=== PATIENT | male | born 1985 | race Caucasian/White ===

== ENCOUNTER 2018-11-22 10:17 | Inpatient (IN) | payer BC ==
[2018-11-22] VITALS (23 sets, daily range): BP systolic 102–145; BP diastolic 49–73; PULSE 79–104; RESP 14–20; Ht 177.8 cm; Wt 103.6 kg
[~2018-11-22] VITALS: Ht 177.8 cm; Wt 103.6 kg
[2018-11-22] MEDS ORDERED: SOD CHLORIDE 0.9% 1,000 ML IV STA (12:07)
[2018-11-22] MEDS ORDERED: ONDANSETRON 4 MG INJ IV STA (12:07)
[2018-11-22] MEDS ORDERED: KETOROLAC 30 MG INJ IV STA (12:07)
[2018-11-22] MEDS ORDERED: SOD CHLORIDE 0.9% 100 ML ONE (13:15)
[2018-11-22] MEDS ORDERED: IOHEXOL 300MG/ML 150 ML BTL ONE (13:15)
--- NOTE | 2018-11-22 13:53 | ERD ---
ER Documentation Chief Complaint Chief Complaint righrt lower quadrant pain, denies n/v/d, clinic couldn"t scan pt. HPI 33-year-old male presenting with right lower quadrant pain x48 hours. No vomiting. Pain is constant. Denies any changes in urination or bowel movement. No fevers. Denies medical problems. NKDA. Surgical history denies. Drug use is marijuana occasionally. ROS All systems reviewed and are negative except as per history of present illness. Allergies Allergies: Coded Allergies: No Known Allergy (Unverified , 11/22/18) PMhx/Soc Medical and Surgical Hx: pt denies Medical Hx, pt denies Surgical Hx Hx Alcohol Use: No Hx Substance Use: Yes (marijuana used a month ago) Hx Tobacco Use: No FmHx Family History: No diabetes, No coronary disease, No other Physical Exam Vitals Vital Signs Date Temp Pulse Resp B/P (MAP) Pulse Ox O2 O2 Flow FiO2 Time Delivery Rate 11/22/18 97.6 90 18 160/88 98 10:28 (112) Physical Exam GENERAL: The patient is well-appearing, well-nourished, in no acute distress HEENT: Atraumatic. Conjunctivae are pink. Pupils equal, round, and reactive to light. There is no scleral icterus. Tympanic membranes clear bilaterally. Oropharynx clear. NECK: C-spine is soft and supple. There is no meningismus. There is no c ervical lymphadenopathy. CHEST: Clear to auscultation bilaterally. There are no rales, wheezes or rhonchi. HEART: Regular rate and rhythm. No murmurs, clicks, rubs or gallops. ABDOMEN: Normal active bowel sounds. No distention. Tender to palpation in the right lower quadrant pain with jumping. BACK: No midline or flank tenderness. Result Diagram: 11/22/18 1220 11/22/18 1220 Results 24 hrs Laboratory Tests Test 11/22/18 12:20 White Blood Count 11.3 10^3/ul Red Blood Count 5.28 10^6/ul Hemoglobin 14.2 g/dl Hematocrit 43.9 % Mean Corpuscular Volume 83.1 fl Mean Corpuscular Hemoglobin 26.9 pg Mean Corpuscular Hemoglobin Concent 32.3 g/dl Red Cell Distribution Width 13.1 % Platelet Count 229 10^3/UL Mean Platelet Volume 10.3 fl Immature Granulocytes % 0.300 % Neutrophils % 75.8 % Lymphocytes % 14.3 % Monocytes % 8.1 % Eosinophils % 1.2 % Basophils % 0.3 % Nucleated Red Blood Cells % 0.0 /100WBC Immature Granulocytes # 0.030 10^3/ul Neutrophils # 8.6 10^3/ul Lymphocytes # 1.6 10^3/ul Monocytes # 0.9 10^3/ul Eosinophils # 0.1 10^3/ul Basophils # 0.0 10^3/ul Nucleated Red Blood Cells # 0.0 10^3/ul Urine Color YELLOW Urine Clarity CLOUDY Urine pH 5.0 Urine Specific [place] 1.023 Urine Ketones 1+ mg/dL Urine Nitrite NEGATIVE mg/dL Urine Bilirubin NEGATIVE mg/dL Urine Urobilinogen NEGATIVE mg/dL Urine Leukocyte Esterase NEGATIVE Kavon/ul Urine Microscopic RBC 2 /HPF Urine Microscopic WBC 4 /HPF Urine Mucus MANY /HPF Urine Hemoglobin 1+ mg/dL Urine Glucose NEGATIVE mg/dL Urine Total Protein 1+ mg/dl Sodium Level 145 mmol/L Potassium Level 4.2 mmol/L Chloride Level 105 mmol/L Carbon Dioxide Level 29 mmol/L Anion Gap 11 Blood Urea Nitrogen 7 mg/dl Creatinine 0.92 mg/dl Est Glomerular Filtrat Rate mL/min > 60 mL/min Glucose Level 107 mg/dl Calcium Level 10.1 mg/dl Total Bilirubin 0.9 mg/dl Direct Bilirubin 0.00 mg/dl Indirect Bilirubin 0.9 mg/dl Aspartate Amino Transf (AST/SGOT) 21 IU/L Alanine Aminotransferase (ALT/SGPT) 22 IU/L Alkaline Phosphatase 43 IU/L Total Protein 8.5 g/dl Albumin 4.8 g/dl Globulin 3.70 g/dl Albumin/Globulin Ratio 1.29 Lipase 91 U/L Current Medications Medications Dose Sig/Zohra Start Time Status Last (Trade) Ordered Route PRN Stop Time Admin Dose Reason Admin Sodium 1,000 ml @ Q1H STAT 11/22/18 DC 11/22/18 Chloride 1,000 mls/hr IV 12:07 12:30 11/22/18 13:06 Ondansetron 4 mg ONCE STAT 11/22/18 DC 11/22/18 HCl (Zofran IV 12:07 12:30 Inj) 11/22/18 12:08 Ketorolac 30 mg ONCE STAT 11/22/18 DC 11/22/18 Tromethamine IV 12:07 12:30 (Toradol) 11/22/18 12:08 IV Flush 10 ml STK-MED 11/22/18 DC 11/22/18 (NS 10 ml) ONCE .ROUTE 13:15 13:22 11/22/18 13:16 Sodium 100 ml @ ud STK-MED 11/22/18 DC 11/22/18 Chloride ONCE .ROUTE 13:15 13:22 11/22/18 13:16 Iohexol 150 ml STK-MED 11/22/18 DC 11/22/18 (Omnipaque ONCE .ROUTE 13:15 13:22 300mg/ ml) 11/22/18 13:16 Piperacillin 100 ml @ ONCE ONCE 11/22/18 11/22/18 Sod/ 200 mls/hr IVPB 14:00 13:46 Tazobactam 11/22/18 14:29 Sod Procedures/MDM DIAGNOSTIC IMAGING REPORT Patient: KENNEY SHELL : 1985 Age: 33 Sex: M MR #: [id number] DOS: 11/22/18 1207 Ordering MD: TERRANCE WAY PA-C Location: [facility] Room/Bed: PROCEDURE: CT ABDOMEN AND PELVIS WITH IV CONTRAST. CLINICAL INDICATION: Right lower quadrant abdominal pain TECHNIQUE: CT scan of the abdomen and pelvis with contrast was performed on a multidetector high-resolution CT scanner following the use of IV contrast. 100 cc Omnipaque-300 was administered. Coronal and sagittal reformatted images were obtained from the axial source images. Images were reviewed on a high-resolution PACS workstation. The total exam CTDI equals 19.4 mGy and the total exam DLP equals 1151 mGy-cm. One or more of the following dose reduction techniques were used: Automated exposure control. Adjustment of the mA and/or kV according to patient size. Use of iterative reconstruction technique. DICOM images are available. COMPARISON: None FINDINGS: CT abdomen: The lung bases are clear. The heart size is within normal limits. There is no significant pericardial effusion. Hepatic morphology is within normal limits. No gross contour deforming masses. The gallbladder is within normal limits. No evidence of intrahepatic or extrahepatic biliary dilatation. The spleen and pancreas are within normal limits. Both adrenal glands are within normal limits. Both kidneys are in normal anatomic position. No evidence of obstruction or hydronephrosis. No gross renal/ureteric calculi. The visualized GI tract demonstrates fluid-filled appendix with moderate amount of adjacent inflammatory changes. There is mild adjacent free fluid and phlegmon. No definitive focal fluid collection noted at this time. Appendicolith is identified, measuring up to 7 millimeters. There is adjacent inflammation of the cecum. The aorta is unremarkable. Several shoddy retroperitoneal lymph nodes are noted. CT pelvis: The bladder is within normal limits. Prostate is normal size. Rectosigmoid colon demonstrates stool. No significant free fluid. No significant pelvic lymphadenopathy. The visualized osseous structures, appears to be within normal limits. IMPRESSION: 1. FINDINGS DESCRIBED ABOVE ARE CONSISTENT WITH ACUTE APPENDICITIS. THERE IS A MODERATE AMOUNT OF ADJACENT INFLAMMATORY CHANGES, FREE FLUID AND PHLEGMON. NO DEFINITIVE FOCAL FLUID COLLECTION OR FREE AIR NOTED AT THIS TIME. ADJACENT IN FLAMMATION OF THE CECUM. 2. No evidence of bowel obstruction. Several fluid filled loops of small bowel suggestive of reactive ileus. ER Course: 1 L normal saline given ED. Morphine given in the ED. Zosyn given ED. Positive findings of appendicitis and Dr. Mae will help facilitate admission. MDM: 33-year-old male presenting with findings consistent with abdominal pain and appendicitis. Patient will be admitted for higher level of care antibiotics intervention. Patient will have surgical consultation. Patient is stable at the time of admission. All questions answered at the time of admission Departure Diagnosis: Primary Impression: Appendicitis Condition: Serious EDDIE WAY PA-C Nov 22, 2018 13:53
[2018-11-22] MEDS ORDERED: PIPER-TAZO 3.375 GM IV (PMX) 100 ML IVPB ONE (14:00)
[2018-11-22] MEDS ORDERED: SOD CHLORIDE 0.9% 1,000 ML IV SCH ×2 (14:14→17:16)
[2018-11-22] MEDS ORDERED: ACETAMINOPHEN 325 MG TAB PO PRN ×3 (14:30→19:00)
[2018-11-22] MEDS ORDERED: ONDANSETRON 4 MG INJ IV PRN ×5 (14:30→19:00)
[2018-11-22] MEDS ORDERED: morphine 2 MG INJ IV PRN ×2 (15:00→19:00)
[2018-11-22] MEDS ORDERED: NACL 0.9% 3 ML SYG IV SCH (15:00)
--- NOTE | 2018-11-22 15:01 | HP ---
Date/Time of Note Date/Time of Note DATE: 11/22/18 TIME: 14:51 Assessment/Plan VTE Prophylaxis Pharmacological prophylaxis: NA/contraindicated Pharm contraindication: low risk/ambulating Lines/Catheters IV Catheter Type (from Nrs): Saline Lock Assessment/Plan Assessment/Plan 33 yo obese man presents with acute appendicitis #Acute appendicitis - As seen on CT. - NPO, IV fluids, IV opioid analgesics - IV zosyn until surgery - Dr. Hurt consulted. - Patient reports ability to exert >4 METS without dyspnea or chest pain. He does not have signs or symptoms of CHF or CAD. He is medically optimized for lap vs open appendectomy. No further cardiac or medical workup needed prior to OR. DVT: SCDs GI: None Result Diagram: 11/22/18 1220 11/22/18 1220 HPI/ROS Admit Date/Time Admit Date/Time 22 November 2018 Hx of Present Illness Mr. Jean is a pleasant 33 yo man who presents with acute onset abdominal pain. 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 He had rapidly progressive right lower quadrant abdominal pain. Cannot qualify nature of pain. Constant over the past two days, worsens with movement, mild improvement with OTC ibuprofen. No nausea, vomiting, diarrhea, constipation, fevers, chills, anorexia, fatigue. He looked up his symptoms online and was concerned about appendicitis so presented to the ED today. In the ED he was afebrile, slightly hypertensive to 160/88 otherwise vitals unremarkable. Mild leukocytosis to 11.[address] labs un[address]. [address] abdomen showed acute appendicitis with 7 mm appendicolith. ROS 12 point review of systems negative except per HPI. PMH/Family/Social Past Medical History Medical History: no pertinent history Medications Current Medications Sodium Chloride 1,000 ml @ 80 mls/hr [id number] IV ; Start 11/22/18 at 14:14; Stop 11/23/18 at 02:43 Ondansetron HCl (Zofran Inj) 4 mg BRIDGE ORDER PRN IV NAUSEA/VOMITING; Start 11/22/18 at 14:30; Stop 11/23/18 at 14:29 Acetaminophen (Tylenol Tab) 650 mg ER BRIDGE PRN PO .MILD PAIN 1-3 OR TEMP; Start 11/22/18 at 14:30; Stop 11/23/18 at 14:29 Coded Allergies: No Known Allergy (Unverified , 11/22/18) Past Surgical History Root canal procedure, wisdom teeth removal. Family History Significant Family History: no pertinent family hx Social History Alcohol Use: rarely (1 drink per week) Smoking Status: Never smoker Drug Use: marijuana (rare) Exam/Review of Systems Vital Signs Vitals Vital Signs Date Temp Pulse Resp B/P (MAP) Pulse Ox O2 O2 Flow FiO2 Time Delivery Rate 11/22/18 97.6 78 18 113/69 99 Room Air 14:12 (84) Exam Exam Gen: Obese man supine in gurney, well appearing. Eyes: PERRL, no icterus HEENT: Moist mucous membranes, clear oropharynx Neck: No lymphadenopathy, supple. Card: Regular rate and rhythm, no murmurs Pulm: Clear to auscultation bilaterally. Abd: Obese, soft. No referred pain from LLQ deep palpation. No rebound tenderness. Moderate RLQ tenderness. Ext: No cyanosis/clubbing/edema Skin: warm, dry, well perfused. ALMA HURLEY MD Nov 22, 2018 15:01
[2018-11-22] MEDS: SOD CHLORIDE 0.45% 1,000 ML IV SCH (15:49)
--- NOTE | 2018-11-22 17:17 | OPR ---
Date/Time of Note Date/Time of Note DATE: 11/22/18 TIME: 17:15 Operative Report Preoperative Diagnosis Acute appendicitis Postoperative Diagnosis Same Operation/Procedure Performed Laparoscopic appendectomy Surgeon see signature line Chief Design Engineer none Anesthesia Type: general Anesthesiologist: ESTEPHANIA VELASCO MD Estimated Blood Loss: minimal Transfusion none Specimen Gangrenous appendix Grafts/Implants none Complications none Pt Condition Post Procedure: stable Disposition: PACU Indications The patient is a 33-year-old male with acute appendicitis. I discussed laparoscopic, possible open, appendectomy with the patient and her family. All benefits, risks, alternatives were discussed in detail. All questions answered. The mother and father elected to proceed per Procedure Description The patient was brought to operative room placed supine on the table. After preop antibiotics and SCDs were applied, the patient was intubated. The abdomen was cleaned, prepped, draped in usual sterile fashion. All incisions were infiltrated with half percent lidocaine with epinephrine. A 5 mm incision was made in the umbilicus. Using a 5 by laparoscope obtained trocar, the abdomen was was entered and insufflated to 15 mmHg CO2. The following trochars in place and direct vision: A right lower quadrant 5 mm left lower quadrant 12 mm I visualized the abdomen and adherent to the right side of the abdominal wall was the terminal ileum. I establish a plane between the abdominal wall and terminal ileum and bluntly brought the terminal ileum medially. I then identified my appendix. It was gangrenous. The base was not involved. I made a rent through the mesentery at the base of the appendix. I then divided the base of the appendix to the cecum with a 35 mm Endo linear cutter white load. . I was able to elevate the appendix. The mesentery was then divided with a 35 mm Endo linear cutter white load. The appendix was placed in Endo Catch bag removed and the 12 mm trocar site. I irrigated out the right lower quadrant and pelvis until effluent was clear. I visualized the staple lines. They were hemostatic. I desufflated the abdomen and removed all trochars. The fascia of the 12 mm trocar site was closed with 0 Vicryl. Skin incisions were closed with 4-0 Monocryl, Mastisol, and Steri-Strips marked muscle Steri-Strips. The patient tolerated the procedure well, was extubated ER, and transferred to the recovery room in stable condition. ARAMIS FAIRBANKS MD Nov 22, 2018 17:17
--- NOTE | 2018-11-22 17:18 | CONS ---
Assessment/Plan Assessment/Plan Assessment/Plan (Daily) Acute appendicitis Discussed laparoscopic, possible open, appendectomy. All benefits, risks, alte rnatives discussed in detail. All questions were answered. Consultation Date/Type/Reason Admit Date/Time 22 November 2018 Date/Time of Note DATE: 11/22/18 TIME: 17:18 Hx of Present Illness The patient is a 33-year-old male with acute onset of right lower quadrant abdominal pain beginning Thursday. His symptoms persisted throughout the weekend. He thought they go away on his own. However, last night the symptoms exacer bated and he presented to the ER. Denies fevers or chills. Denies nausea or vomiting. He denies prior episodes. He presented to the ER and his work-up is consistent with acute appendicitis. I was called for consultation. 14 point review of systems was performed. Pertinent negatives and positives per HPI. Past Medical History Medical History: no pertinent history Medications Current Medications Sodium Chloride 1,000 ml @ 80 mls/hr [id number] IV ; Start 11/22/18 at 14:14; Stop 11/23/18 at 02:43 Ondansetron HCl (Zofran Inj) 4 mg BRIDGE ORDER PRN IV NAUSEA/VOMITING; Start 11/22/18 at 14:30; Stop 11/23/18 at 14:29 Acetaminophen (Tylenol Tab) 650 mg ER BRIDGE PRN PO .MILD PAIN 1-3 OR TEMP; Start 11/22/18 at 14:30; Stop 11/23/18 at 14:29 Sodium Chloride 1,000 ml @ 80 mls/hr [id number] IV Last administered on 11/22/18at 15:49; Admin Dose 80 MLS/HR; Start 11/22/18 at 14:49 IV Flush (NS 3 ml) 3 ml PER PROTOCOL IV ; Start 11/22/18 at 15:00 Ondansetron HCl (Zofran Inj) 4 mg Q6H PRN IV NAUSEA/VOMITING Last administered on 11/22/18at 17:14; Admin Dose 4 MG; Start 11/22/18 at 15:00 Morphine Sulfate (morphine) 2 mg Q4H PRN IV .SEVERE PAIN 7-10 Last administered on 11/22/18at 17:14; Admin Dose 2 MG; Start 11/22/18 at 15:00 Piperacillin Sod/ Tazobactam Sod 100 ml @ 200 mls/hr Q8 IVPB ; Start 11/22/18 at 22:00 Allergies: Coded Allergies: No Known Allergy (Unverified , 11/22/18) Past Surgical History Past Surgical Hx: no surgical history Family History Significant Family History: no pertinent family hx Social History Alcohol Use: rarely (1 drink per week) Smoking Status: Never smoker Drug Use: marijuana (rare) Exam/Review of Systems Exam Vitals Vital Signs Date Temp Pulse Resp B/P (MAP) Pulse Ox O2 O2 Flow FiO2 Time Delivery Rate 11/22/18 97.6 78 18 113/69 99 Room Air 14:12 (84) Constitutional: alert, oriented, well developed Psych: no complaints Head: normocephalic Eyes: nl conjunctiva ENMT: nl external ears & nose Neck: supple, non-tender Respiratory: clear to auscultation Cardiovascular: regular rate and rhythm Gastrointestinal: soft, tender (to the right lower quadrant), other (Nondistended) Extremities: normal pulses Neurological: GRILL ATTENDANT II-XII intact, nl mental status, nl speech, nl strength Skin: nl turgor, rash or lesions Lymph: nl lymph nodes Results Result Diagram: 11/22/18 1220 11/22/18 1220 Results 24hrs Laboratory Tests Test 11/22/18 12:20 White Blood Count 11.3 H Red Blood Count 5.28 Hemoglobin 14.2 Hematocrit 43.9 Mean Corpuscular Volume 83.1 Mean Corpuscular Hemoglobin 26.9 L Mean Corpuscular Hemoglobin Concent 32.3 Red Cell Distribution Width 13.1 Platelet Count 229 Mean Platelet Volume 10.3 Immature Granulocytes % 0.300 Neutrophils % 75.8 Lymphocytes % 14.3 L Monocytes % 8.1 Eosinophils % 1.2 Basophils % 0.3 Nucleated Red Blood Cells % 0.0 Immature Granulocytes # 0.030 Neutrophils # 8.6 H Lymphocytes # 1.6 Monocytes # 0.9 Eosinophils # 0.1 Basophils # 0.0 Nucleated Red Blood Cells # 0.0 Urine Color YELLOW Urine Clarity CLOUDY A Urine pH 5.0 Urine Specific [place] 1.023 Urine Ketones 1+ H Urine Nitrite NEGATIVE Urine Bilirubin NEGATIVE Urine Urobilinogen NEGATIVE Urine Leukocyte Esterase NEGATIVE Urine Microscopic RBC 2 Urine Microscopic WBC 4 Urine Mucus MANY A Urine Hemoglobin 1+ H Urine Glucose NEGATIVE Urine Total Protein 1+ H Sodium Level 145 H Potassium Level 4.2 Chloride Level 105 Carbon Dioxide Level 29 Anion Gap 11 Blood Urea Nitrogen 7 Creatinine 0.92 Est Glomerular Filtrat Rate mL/min > 60 Glucose Level 107 Calcium Level 10.1 Total Bilirubin 0.9 Direct Bilirubin 0.00 Indirect Bilirubin 0.9 Aspartate Amino Transf (AST/SGOT) 21 Alanine Aminotransferase (ALT/SGPT) 22 Alkaline Phosphatase 43 Total Protein 8.5 H Albumin 4.8 Globulin 3.70 H Albumin/Globulin Ratio 1.29 Lipase 91 Imaging Imaging Patient: KENNEY SHELL : 1985 Age: 33 Sex: M MR #: [id number] DOS: 11/22/18 1207 Ordering MD: TERRANCE WAY PA-C Location: [facility] Room/Bed: PROCEDURE: CT ABDOMEN AND PELVIS WITH IV CONTRAST. CLINICAL INDICATION: Right lower quadrant abdominal pain TECHNIQUE: CT scan of the abdomen and pelvis with contrast was performed on a multidetector high-resolution CT scanner following the use of IV contrast. 100 cc Omnipaque-300 was administered. Coronal and sagittal reformatted images were obtained from the axial source images. Images were reviewed on a high-resolution PACS workstation. The total exam CTDI equals 19.4 mGy and the total exam DLP equals 1151 mGy-cm. One or more of the following dose reduction techniques were used: Automated exposure control. Adjustment of the mA and/or kV according to patient size. Use of iterative reconstruction technique. DICOM images are available. COMPARISON: None FINDINGS: CT abdomen: The lung bases are clear. The heart size is within normal limits. There is no significant pericardial effusion. Hepatic morphology is within normal limits. No gross contour deforming masses. The gallbladder is within normal limits. No evidence of intrahepatic or extrahep atic biliary dilatation. The spleen and pancreas are within normal limits. Both adrenal glands are within normal limits. Both kidneys are in normal anatomic position. No evidence of obstruction or hydronephrosis. No gross renal/ureteric calculi. The visualized GI tract demonstrates fluid-filled appendix with moderate amount of adjacent inflammatory changes. There is mild adjacent free fluid and phlegmon. No definitive focal fluid collection noted at this time. Appendicolith is identified, measuring up to 7 millimeters. There is adjacent inflammation of the cecum. The aorta is unremarkable. Several shoddy retroperitoneal lymph nodes are noted. CT pelvis: The bladder is within normal limits. Prostate is normal size. Rectosigmoid colon demonstrates stool. No significant free fluid. No significant pelvic lymphadenopathy. The visualized osseous structures, appears to be within normal limits. IMPRESSION: 1. FINDINGS DESCRIBED ABOVE ARE CONSISTENT WITH ACUTE APPENDICITIS. THERE IS A MODERATE AMOUNT OF ADJACENT INFLAMMATORY CHANGES, FREE FLUID AND PHLEGMON. NO DEFINITIVE FOCAL FLUID COLLECTION OR FREE AIR NOTED AT THIS TIME. ADJACENT INFLAMMATION OF THE CECUM. 2. No evidence of bowel obstruction. Several fluid filled loops of small bowel suggestive of reactive ileus. Call report was made with XIAO Way @ 1:35 PM on 11/22/18 RPTAT: AAPP Marianela Palomares Physician Date Time Electronically viewed and signed by Marianela Palomares Physician on 11/22/2018 13:36 Medications Medication Current Medications Sodium Chloride 1,000 ml @ 80 mls/hr [id number] IV ; Start 11/22/18 at 14:14; Stop 11/23/18 at 02:43 Ondansetron HCl (Zofran Inj) 4 mg BRIDGE ORDER PRN IV NAUSEA/VOMITING; Start 11/22/18 at 14:30; Stop 11/23/18 at 14:29 Acetaminophen (Tylenol Tab) 650 mg ER BRIDGE PRN PO .MILD PAIN 1-3 OR TEMP; Start 11/22/18 at 14:30; Stop 11/23/18 at 14:29 Sodium Chloride 1,000 ml @ 80 mls/hr [id number] IV Last administered on 11/22/18at 15:49; Admin Dose 80 MLS/HR; Start 11/22/18 at 14:49 IV Flush (NS 3 ml) 3 ml PER PROTOCOL IV ; Start 11/22/18 at 15:00 Ondansetron HCl (Zofran Inj) 4 mg Q6H PRN IV NAUSEA/VOMITING Last administered on 11/22/18at 17:14; Admin Dose 4 MG; Start 11/22/18 at 15:00 Morphine Sulfate (morphine) 2 mg Q4H PRN IV .SEVERE PAIN 7-10 Last administered on 11/22/18at 17:14; Admin Dose 2 MG; Start 11/22/18 at 15:00 Piperacillin Sod/ Tazobactam Sod 100 ml @ 200 mls/hr Q8 IVPB ; Start 11/22/18 at 22:00 ARAMIS FAIRBANKS MD Nov 22, 2018 17:18
--- NOTE | 2018-11-22 18:39 | PREAC ---
Date/Time of Note Date/Time of Note DATE: 11/22/18 TIME: 18:38 Anesthesia Eval and Record Evaluation Time Pre-Procedure Interview DATE: 11/22/18 TIME: 18:38 Age 33 Sex male NPO: 8 hrs Preoperative diagnosis Acute Appendicitis Planned procedure Laparoscopic Appendectomy Past Medical History Past Medical History: Includes GI: Obesity Surgery & Anesthesia Issues No known issue Meds Anticoagulation: No Beta Santosh within 24 hr: No Reason Beta Santosh not given: Pt. not on B-Santosh Current Medications Sodium Chloride 1,000 ml @ 80 mls/hr [id number] IV ; Start 11/22/18 at 14:14; Stop 11/23/18 at 02:43 Ondansetron HCl (Zofran Inj) 4 mg BRIDGE ORDER PRN IV NAUSEA/VOMITING; Start 11/22/18 at 14:30; Stop 11/23/18 at 14:29 Acetaminophen (Tylenol Tab) 650 mg ER BRIDGE PRN PO .MILD PAIN 1-3 OR TEMP; Start 11/22/18 at 14:30; Stop 11/23/18 at 14:29 Sodium Chloride 1,000 ml @ 80 mls/hr [id number] IV Last administered on 11/22/18at 15:49; Admin Dose 80 MLS/HR; Start 11/22/18 at 14:49 IV Flush (NS 3 ml) 3 ml PER PROTOCOL IV ; Start 11/22/18 at 15:00 Ondansetron HCl (Zofran Inj) 4 mg Q6H PRN IV NAUSEA/VOMITING Last administered on 11/22/18at 17:14; Admin Dose 4 MG; Start 11/22/18 at 15:00 Morphine Sulfate (morphine) 2 mg Q4H PRN IV .SEVERE PAIN 7-10 Last administered on 11/22/18at 17:14; Admin Dose 2 MG; Start 11/22/18 at 15:00 Piperacillin Sod/ Tazobactam Sod 100 ml @ 200 mls/hr Q8 IVPB ; Start 11/22/18 at 22:00 Sodium Chloride 1,000 ml @ 80 mls/hr [id number] IV ; Start 11/22/18 at 17:16; Stop 11/23/18 at 05:45 Ondansetron HCl (Zofran Inj) 4 mg BRIDGE ORDER PRN IV NAUSEA/VOMITING; Start 11/22/18 at 17:30; Stop 11/23/18 at 17:29 Acetaminophen (Tylenol Tab) 650 mg ER BRIDGE PRN PO .MILD PAIN 1-3 OR TEMP; Start 11/22/18 at 17:30; Stop 11/23/18 at 17:29 Meds reviewed: Yes Allergies Coded Allergies: No Known Allergy (Unverified , 11/22/18) Allergies Reviewed: Yes Labs/Studies Labs Reviewed: Reviewed by anesthesiologist Result Diagram: 11/22/18 1220 11/22/18 1220 Laboratory Tests 11/22/18 12:20 test: N/A Studies: ECG (n/a), CXR (n/a) Pre-procedure Exam Last vitals Vital Signs Date Temp Pulse Resp B/P (MAP) Pulse Ox O2 O2 Flow FiO2 Time Delivery Rate 11/22/18 99.8 79 18 130/63 99 Room Air 18:06 (85) Airway: Adequate mouth opening, Adequate thyromental dist Mallampati: Mallampati II Teeth: Normal Lung: Normal Heart: Normal ASA Physical Status ASA physical status: 2 Emergency: E Planned Anesthetic General/MAC: ETT Nerve block: TAP (bilateral) Planned Pain Management Single shot nerve block, Parenteral pain med Pre-operative Attestations Prior to commencing anesthesia and surgery, the patient was re-evaluated, there was verification of: *The patient's identity *The results of appropriate recent lab work and preoperative vital signs *The above evaluation not changing prior to induction *Anesthetic plan, risk benefits, alternative and complications discussed with patient/family; questions answered; patient/family understands, accepts and wishes to proceed. ESTEPHANIA VELASCO MD Nov 22, 2018 18:39
[2018-11-22] MEDS ORDERED: ROCURONIUM 50 MG INJ ONE (18:40)
[2018-11-22] MEDS ORDERED: FENTAnyl 50 MCG/ML VIAL ONE (18:40)
[2018-11-22] MEDS ORDERED: PROPOFOL 20 ML ONE (18:40)
[2018-11-22] MEDS ORDERED: CEFAZOLIN 1 GM INJ ONE (18:40)
[2018-11-22] MEDS ORDERED: ROPIVACAINE 0.5 % 30 ML VIAL ONE (18:40)
[2018-11-22] MEDS ORDERED: MIDAZOLAM 1 MG/ML 2 ML INJ ONE (18:40)
--- NOTE | 2018-11-22 18:53 | SIPON ---
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
[2018-11-22] MEDS ORDERED: DIPHENHYDRAMINE 50 MG INJ IV PRN (19:00)
[2018-11-22] MEDS ORDERED: FENTAnyl 50 MCG/ML VIAL IV PRN ×3 (19:00)
[2018-11-22] MEDS ORDERED: EPHEDrine SULFATE 50 MG/5 ML SYG IV PRN (19:00)
[2018-11-22] MEDS ORDERED: HYDROCODONE/APAP (5/325) TAB PO PRN (19:00)
[2018-11-22] MEDS ORDERED: MEPERIDINE 25 MG INJ IV PRN (19:00)
[2018-11-22] MEDS ORDERED: HYDROmorphONE 1 MG/5 ML IV SYRINGE IV PRN ×3 (19:00)
[2018-11-22] MEDS ORDERED: METOCLOPRAMIDE 10 MG INJ IV PRN (19:00)
[2018-11-22] MEDS ORDERED: KETOROLAC 30 MG INJ ONE (19:33)
[2018-11-22] MEDS ORDERED: METOCLOPRAMIDE 10 MG INJ ONE (19:33)
[2018-11-22] MEDS ORDERED: SUGAMMADEX SODIUM 200 MG/2 ML VIAL IV ONE (19:33)
[2018-11-22] MEDS ORDERED: ONDANSETRON 4 MG INJ ONE (19:33)
[2018-11-22] MEDS ORDERED: DEXAMETHASONE 4 MG/ML 5 ML INJ ONE (19:33)
[2018-11-22] MEDS ORDERED: MEPERIDINE 100 MG INJ ONE (19:51)
--- NOTE | 2018-11-22 20:00 | PAC ---
Date/Time of Note Date/Time of Note DATE: 11/22/18 TIME: 20:00 Post-Anesthesia Notes Post-Anesthesia Note Last documented vital signs Vital Signs Date Temp Pulse Resp B/P (MAP) Pulse Ox O2 O2 Flow FiO2 Time Delivery Rate 11/22/18 99.3 79 18 130/63 99 Room Air 20:06 (85) Activity: WNL Respiratory function: WNL Cardiovascular function: WNL Mental status: Baseline Pain reasonably controlled: Yes Hydration appropriate: Yes Nausea/Vomiting absent: Yes ESTEPHANIA VELASCO MD Nov 22, 2018 20:00
[2018-11-22] MEDS: D5-NS + KCL 20 MEQ 1,000 ML IV SCH (21:50)
[2018-11-22] MEDS ORDERED: PIPER-TAZO 3.375 GM IV (PMX) 100 ML IVPB SCH (22:00)
[2018-11-23] MEDS: PIPER-TAZO 3.375 GM IV (PMX) 100 ML IVPB SCH ×5 (00:12→23:24)
[2018-11-23 00:30] VITALS: BP 140/77; PULSE 97; RESP 18
[2018-11-23 01:31] VITALS: BP 131/74; PULSE 90; RESP 18
[2018-11-23] MEDS: SOD CHLORIDE 0.45% 1,000 ML IV SCH ×2 (03:19→15:49)
[2018-11-23] MEDS: D5-NS + KCL 20 MEQ 1,000 ML IV SCH ×3 (04:50→14:50)
[2018-11-23 07:55] VITALS: BP 114/59; PULSE 77; RESP 18
[2018-11-23] MEDS: ENOXAPARIN 40 MG/0.4 ML SYG SC SCH (10:05)
--- NOTE | 2018-11-23 13:19 | PN ---
Date/Time of Note Date/Time of Note DATE: 11/23/18 TIME: 13:18 Assessment/Plan Lines/Catheters IV Catheter Type (from Nrs): Peripheral IV Webster in Place (from Nrs): No Assessment/Plan Assessment/Plan Postop day #1 status post lap appendectomy for perforated appendicitis Recovering well. Afebrile and normal white count. Continue IV antibiotics. If he remains afebrile, can discharge tomorrow. Subjective 24 Hr Interval Summary Constitutional: no complaints, improved Feeding: advancing diet Pain Control: well controlled Exam/Review of Systems Vital Signs Vitals Vital Signs Date Temp Pulse Resp B/P (MAP) Pulse Ox O2 O2 Flow FiO2 Time Delivery Rate 11/23/18 98.4 77 18 114/59 90 07:55 (77) 11/22/18 Nasal 21:05 Cannula 11/22/18 2.0 20:25 Intake and Output 11/22/18 11/22/18 11/23/18 1515:00 23:00 07:00 IntakeIntake Total 1200 ml 1500 ml OutputOutput Total 10 ml BalanceBalance 1190 ml 1500 ml Exam Constitutional: alert, oriented, well developed Respiratory: clear to auscultation Cardiovascular: regular rate and rhythm Gastrointestinal: soft, other (nondistended) Results Result Diagram: 11/23/18 0444 11/23/18 0444 ARAMIS FAIRBANKS MD Nov 23, 2018 13:19
[2018-11-23] MEDS ORDERED: MAGNESIUM SULFATE 2 GM/50 ML 50 ML IVPB ONE (14:00)
[2018-11-23 14:23] VITALS: BP 111/60; PULSE 85; RESP 18
--- NOTE | 2018-11-23 16:50 | PN ---
Date/Time of Note Date/Time of Note DATE: 11/23/18 TIME: 16:48 Assessment/Plan VTE Prophylaxis Risk score (from Ns)>0 risk: 1 SCD applied (from Ns): Yes Pharmacological prophylaxis: NA/contraindicated Pharm contraindication: low risk/ambulating Lines/Catheters IV C[facility] Type [facility]from [facility] Peripheral IV Urinary Cath still in place: No Assessment/Plan Assessment/Plan 33 yo obese man presents with acute appendicitis #Acute (gangrenous) appendicitis - s/p lap appendectomy by Dr. Hurt on 11/22 - Will continue IV zosyn for today. - Diet advanced. - If afebrile tomorrow, plan for discharge. - D/C instructions per surgery. DVT: SCDs GI: None Result Diagram: 11/23/1844311/23/18443 Subjective 24 Hr Interval Summary Free Text/Dictation Patient doing well. Recovering well from surgery. Tolerating full liquid diet. Ambulatory. On room air. Exam/Review of Systems Exam Vitals Vital Signs Date Temp Pulse Resp B/P (MAP) Pulse Ox O2 O2 Flow FiO2 Time Delivery Rate 11/23/18 98.1 85 18 111/60 92 14:23 (77) 11/22/18 Nasal 21:05 Cannula 11/22/18 2.0 20:25 Intake and Output 11/22/18 11/22/18 11/23/18 1414:59 22:59 06:59 IntakeIntake Total 1200 ml 1500 ml OutputOutput Total 10 ml BalanceBalance 1190 ml 1500 ml Exam Gen: Obese man supine in gurney, well appearing. Eyes: PERRL, no icterus HEENT: Moist mucous membranes, clear oropharynx Neck: No lymphadenopathy, supple. Card: Regular rate and rhythm, no murmurs Pulm: Clear to auscultation bilaterally. Abd: Left lower surgical incision with some bleeding and pain. Other incisions look fine. Abdomen soft. Ext: No cyanosis/clubbing/edema Skin: warm, dry, well perfused. Results Results 24hrs Laboratory Tests Test 11/23/18 04:44 White Blood Count 8.6 # Red Blood Count 4.28 L Hemoglobin 11.6 L Hematocrit 35.6 L Mean Corpuscular Volume 83.2 Mean Corpuscular Hemoglobin 27.1 L Mean Corpuscular Hemoglobin Concent 32.6 Red Cell Distribution Width 13.1 Platelet Count 183 # Mean Platelet Volume 10.7 H Immature Granulocytes % 0.600 H Neutrophils % 89.6 H Lymphocytes % 4.8 L Monocytes % 5.0 Eosinophils % 0.0 Basophils % 0.0 Nucleated Red Blood Cells % 0.0 Immature Granulocytes # 0.050 H Neutrophils # 7.7 H Lymphocytes # 0.4 L Monocytes # 0.4 Eosinophils # 0.0 Basophils # 0.0 Nucleated Red Blood Cells # 0.0 Sodium Level 139 Potassium Level 4.5 Chloride Level 105 Carbon Dioxide Level 26 Anion Gap 8 Blood Urea Nitrogen 8 Creatinine 0.85 Est Glomerular Filtrat Rate mL/min > 60 Glucose Level 252 #H Hemoglobin A1c 5.3 Calcium Level 8.9 Phosphorus Level 3.9 Magnesium Level 1.6 L Total Bilirubin 0.7 Direct Bilirubin 0.00 Indirect Bilirubin 0.7 Aspartate Amino Transf (AST/SGOT) 18 Alanine Aminotransferase (ALT/SGPT) 23 Alkaline Phosphatase 32 L Total Protein 6.6 # Albumin 3.7 # Globulin 2.90 Albumin/Globulin Ratio 1.27 Triglycerides Level 24 Cholesterol Level 87 L LDL Cholesterol, Calculated 44 HDL Cholesterol 38 Cholesterol/HDL Ratio 2.2 Thyroid Stimulating Hormone (TSH) 0.568 Medications Medication Current Medications Sodium Chloride 1,000 ml @ 80 mls/hr [id number] IV Last administered on 11/22/18at 15:49; Admin Dose 80 MLS/HR; Start 11/22/18 at 14:49 IV Flush (NS 3 ml) 3 ml PER PROTOCOL IV ; Start 11/22/18 at 15:00 Piperacillin Sod/ Tazobactam Sod 100 ml @ 200 mls/hr Q6 IVPB Last administered on 11/23/18at 12:35; Admin Dose 200 MLS/HR; Start 11/23/18 at 00:00 Ondansetron HCl (Zofran Inj) 4 mg Q6H PRN IV NAUSEA AND/OR VOMITING; Start 11/22/18 at 19:00 Acetaminophen (Tylenol Tab) 650 mg Q6H PRN PO PAIN LEVEL 1-3 OR FEVER; Start 11/22/18 at 19:00 Ibuprofen (Motrin) 600 mg Q6H PRN PO PAIN LEVEL 1-3; Start 11/22/18 at 19:00 Morphine Sulfate (morphine) 2 mg Q2H PRN IV PAIN LEVEL 8-10 Last administered on 11/23/18 00:13; Admin Dose 2 MG; Start 11/22/18 at 19:00 Acetaminophen/ Hydrocodone Bitart ([place] (5/325)) 1 tab Q6H PRN PO PAIN LEVEL 4-7 Last administered on 11/23/18 10:04; Admin Dose 1 TAB; Start 11/22/18 at 19:00 Potassium Chloride/Dextrose/ Sod Cl 1,000 ml @ 100 mls/hr Q10H IV Last administered on 11/23/18 11:44; Admin Dose 100 MLS/HR; Start 11/22/18 at 18:50 Enoxaparin Sodium (Lovenox) 40 mg DAILY@07 SC Last administered on 11/23/18 10:05; Admin Dose 40 MG; Start 11/23/18 at 07:00 ALMA HURLEY MD Nov 23, 2018 16:50
[2018-11-23] MEDS: IBUPROFEN 600 MG TAB PO PRN (19:03)
[2018-11-23 20:00] VITALS: BP 126/75; PULSE 94; RESP 18
[2018-11-24] MEDS: D5-NS + KCL 20 MEQ 1,000 ML IV SCH ×2 (00:50→10:50)
[2018-11-24 02:00] VITALS: BP 108/57; PULSE 76; RESP 18
[2018-11-24] MEDS: ENOXAPARIN 40 MG/0.4 ML SYG SC SCH (06:10)
[2018-11-24] MEDS: PIPER-TAZO 3.375 GM IV (PMX) 100 ML IVPB SCH ×2 (06:10→13:09)
[2018-11-24] MEDS: IBUPROFEN 600 MG TAB PO PRN (06:27)
[2018-11-24 08:19] VITALS: BP 113/63; PULSE 90; RESP 18
[2018-11-24] MEDS ORDERED: AMOX1TAB10 PO (11:19)
[2018-11-24] MEDS ORDERED: OXYC-279 PO (11:19)
--- NOTE | 2018-11-24 11:21 | PDOCDIS ---
Discharge Instructions DIAGNOSIS Discharge Diagnosis Acute appendicitis CONDITION [id number] Patient Condition: [id number] Good HOME CARE INSTRUCTIONS: [id number] Diet Instructions: [id number] Regular ACTIVITY: [id number] Activity Restrictions: [id number] Avoid heavy lifting (No lifting more than 20 lbs for 4 weeks (until December 20)) FOLLOW UP/APPOINTMENTS Follow-up Plan 1. See your primary care doctor in 1-2 weeks. 2. Take all medications as prescribed. ALMA HURLEY MD November 24, 2018 11:21
[2018-11-24 14:15] VITALS: BP 132/84; PULSE 107; RESP 18
--- NOTE | 2018-11-24 16:53 | DS ---
Date/Time of Note Date/Time of Note DATE: 11/24/18 TIME: 16:51 Discharge Summary Admission/Discharge Info Admit Date/Time Nov 22, 2018 at 14:15 Discharge Date/Time November 24, 2018 at 15:00 Discharge Diagnosis Acute appendicitis Patient Condition: Good Consults Dr. Hurt, general surgery Procedures 11/22/18: Lap appendectomy Hx of Present Illness Mr. Jean is a pleasant 33 yo man who presents with acute onset abdominal pain. 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 He had rapidly progressive right lower quadrant abdominal pain. Cannot qualify nature of pain. Constant over the past two days, worsens with movement, mild improvement with OTC ibuprofen. No nausea, vomiting, diarrhea, constipation, fevers, chills, anorexia, fatigue. He looked up his symptoms online and was concerned about appendicitis so presented to the ED today. In the ED he was afebrile, slightly hypertensive to 160/88 otherwise vitals unremarkable. Mild leukocytosis to 11.[address]. [address] abdomen showed acute appendicitis with 7 mm appendicolith. Hospital Course The night of admission patient was taken to OR by Dr. Hurt for lap appendectomy. No perforation but the appendix was really gangrenous. Postoperative course unremarkable. Continued Zosyn after surgery and patient will be discharge on a course of Augmentin. Home Meds Active Scripts Oxycodone HCl/Acetaminophen (Percocet 5-325 mg Tablet) 1 Each Tablet, 1 EACH PO Q6, #7 TAB Prov:ALMA HURLEY MD 11/24/18 Amoxicillin/Potassium Clav (Amox-Clav 875-125 mg Tablet) 875-125 mg Tab, 1 TAB PO BID, #20 TAB Prov:ALMA HURLEY MD 11/24/18 Follow-up Plan 1. See your primary care doctor in 1-2 weeks. 2. Take all medications as prescribed. Primary Care Provider Care Physician No Primary Time spent on discharge: > 30 minutes ALMA HURLEY MD November 24, 2018 16:52
== END 2018-11-24 15:00 | disposition home or self-care (01) | DRG 343 ==
LOC: FTE 10:17 → 2NE 14:15
PROVIDERS: ADMIT Internal Medicine; ATTEND Internal Medicine
PROC: 0DTJ4ZZ Resection of Appendix, Percutaneous Endoscopic Approach (ICD-10-PCS; principal; 2018-11-22 19:30)
DX: K35.891 Other acute appendicitis without perforation, with gangrene (principal); E66.9 Obesity, unspecified; Z68.32 Body mass index [BMI] 32.0-32.9, adult
CPT/HCPCS: 36415; 74177; 80053; 80061; 81001; 83036; 83690; 83735; 84100; 84443; 85025; 88304; 96374; 96375; J0690; J1100; J1650; J1885; J2175; J2250; J2270; J2405; J2543; J2765; J2795; J3010; J3475; J3480; J7030; Q9967